=== PATIENT | female | born 1965 | race Caucasian/White ===

== ENCOUNTER 2024-04-09 10:00 | Outpatient (OUT) | payer BC, SELFPAY ==
--- NOTE | 2024-04-09 10:07 | ECG_ITS ---
[facility] Test Date: 2024-04-09 Pat Name: Lillian Sparks Department: Room: - Gender: Female [employer]: : 1965 Requested By: Order Number: [id number] Reading MD: SHAUNNA LOAIZA Measurements Intervals [place] Rate: 61 P: 58 NH: 164 QRS: 21 QRSD: 90 T: 25 QT: 400 QTc: 404 Interpretive Statements SINUS RHYTHM No previous ECG available for comparison Electronically Signed On 04-10-2024 13:18:17 EDT by SHAUNNA LOAIZA
[2024-04-09 11:40] LABS: Basophils Percent Auto 0.3 % (0.2-2.0); Eosinophils Absolute Auto 0.1 10^3/uL (0.0-0.7); Eosinophils Percent Auto 1.6 % (0.9-7.0); Hematocrit 36.5 % (36.0-48.0); Hemoglobin 12.2 g/dL (12.0-16.0); Immature Granulocytes Abs Auto 0.01 10^3/uL (0.00-0.03); Immature Granulocytes Pct Auto 0.3 % (0.0-0.5); Lymphocytes Absolute Auto 1.3 10^3/uL (1.2-3.8); Lymphocytes Percent Auto 34.1 % (20.5-60.0); Mean Corpuscular HGB Conc 33.4 g/dL (29.9-35.2); Mean Corpuscular Hemoglobin 31.2 pg (26.7-34.0); Mean Corpuscular Volume 93.4 fL (81.0-99.0); Mean Platelet Volume 9.4 fL (9.5-13.5); Monocytes Absolute Auto 0.2 10^3/uL (0.3-0.8); Monocytes Percent Auto 6.2 % (1.7-12.0); Neutrophils Absolute Auto 2.1 10^3/uL (1.4-6.5); Neutrophils Percent Auto 57.5 % (43.0-75.0); Platelet Count 231 10^3/uL (150-450); Red Blood Count 3.91 10^6/uL (4.20-5.40); Red Cell Distribution Width 12.1 % (11.0-15.0); White Blood Count 3.7 10^3/uL (4.0-11.0)
[2024-04-09 11:43] LABS: Anion Gap 8.8; BUN Creatinine Ratio 18.2; Calcium 9.4 mg/dL (8.5-10.1); Carbon Dioxide 34.1 mmol/L (21.0-32.0); Chloride 104 mmol/L (98-107); Estimated GFR (African America >60 (>=60); Estimated GFR (Non-African Ame >60 (>=60); Glucose 115 mg/dL (74-106); Potassium 3.9 mmol/L (3.5-5.1); Sodium 143 mmol/L (136-145)
== END 2024-04-09 10:01 | disposition home or self-care (01) ==
LOC: PST 10:01
PROVIDERS: PCP Family Medicine; Visit Provider Surgery
DX: Z01.810 Encounter for preprocedural cardiovascular examination (principal); Z01.812 Encounter for preprocedural laboratory examination; K82.8 Other specified diseases of gallbladder; I10 Essential (primary) hypertension; D64.9 Anemia, unspecified
CPT/HCPCS: 36415; 80048; 85025; 93005

== ENCOUNTER 2024-04-13 07:09 | Day surgery (SDC) | payer BC, SELFPAY ==
[2024-04-09 10:58] VITALS: BP 124/77; PULSE 63; TEMP 36.4; O2SAT 97; BMI 35.5
[2024-04-13] VITALS (18 sets, daily range): BP systolic 135–154; BP diastolic 70–85; PULSE 69–83; TEMP 36.1–36.2; O2SAT 95–97; BMI 34.9
[2024-04-13] MEDS: LACTATED RINGER'S SOLUTION 1,000 ML 50 ML IV (07:38)
[2024-04-13] MEDS: INDOCYANINE GREEN 25 MG VIAL 5 MG INJ (07:38)
[2024-04-13] MEDS: CLINDAMYCIN PHOSPHATE/D5W 600 MG/50 ML PIGGYBACK 100 MG IV (08:12)
--- NOTE | 2024-04-13 08:16 | P.ON_ITS ---
Date of procedure: 04/13/24 Pre-op diagnosis: symptomatic cholelithiasis Post-op diagnosis: other (chronic cholecystitis ) Procedure: Procedure: Robotic assisted laparoscopic cholecystectomy with TAP block The patient was brought to the operating room and placed supine on the operating room table. Cardiopulmonary monitoring was initiated. General anesthesia was induced without any complication. A time-out was performed. Pre-operative antibiotics were given. EPC cuffs were on the lower extremities. The abdomen was prepped and draped in the usual sterile fashion. The abdomen was entered approximately 12-14 cm distal to the xyophoid process and to the left of the midline. To do this a skin incision was made. A 5mm 0 degree laparoscope was then introduced using an optical access trocar. Pneumoperitoneum was then established through this trocar. Once pneumoperitoneum was created 2 additional 8 mm Da Judith ports were placed under direct visualization in the mid left and left lateral abdomen along the same line just superior to the umbilicus. A 4th 8mm RUQ port was placed then as well under direct visualization. The 5mm optiview port was then upsized to a 12mm robotic port under direct visualization. Prior to proceeding with the operation, an intraoperative transversus abdominis plane TAP block was performed. ?Under visualization with the laparoscope, a needle was inserted percutaneously and, confirming that I was in the right plane, 30 mL of a mixture of Ropivacaine and Decadron were injected on both sides for a total of 60 ml. ?Good separation of the muscle planes was seen bilaterally indicating good placement of the anesthetic solution. The da Judith machine was then docked and a camera placed without complication. A monopolar hook was then placed in the right arm and a fenestrated bipolar grasper was placed in the left arm.? Filmy adhesions between the gallbladder and the omentum were lysed carefully with electrocautery.? The fundus of the gall bladder was grasped and directed towards the patient's right shoulder.? The infundibulum of the gallbladder was grasped with a bipolar grasper.? The gallbladder was positioned so that the cystic duct was at a right angle to the common bile duct in order to expose Calot's triangle. The peritoneum between the gallbladder and the liver was taken down by electrocautery to further mobilize the triangle.? The fibrous tissue was hooked with meticulous electrocautery.? Hook electrocautery was used to identify the cystic duct. The cystic duct was skeletonized with electrocautery.? Dissection was continued to locate the cystic artery.? The cystic artery was skeletonized with electrocautery. Critical view was obtained in the anterior and posterior window.? All fat and fibrous tissue was dissected from the cystohepatic triangle with careful hook electrocautery. The cystic plate of the liver was skeletonized with hook electrocautery.? Both the cystic duct and cystic artery were the only structures visualized entering into the gallbladder. Firefly was used to confirm identification of the cystic duct.? The critical view of safety was confirmed. The cystic duct was ligated with double Hemoclips, and then divided with Endoshears. The cystic artery was ligated with a Hemoclip and divided with Endoshears. The gallbladder was dissected from the liver bed with electrocautery.? The gallbladder was then placed into the Endopouch and delivered from the body at the umbilicus incision.? The bed was then inspected.? Hemostasis was achieved with electrocautery. The cystic duct and artery stumps were identified. All clips remained on both the cystic artery and the cystic duct stump.? No sign of bile leak or bleeding from the duct or artery stump. The da Judith was undocked from the patient.?The camera and the left umbilical port were removed from the abdomen. The umbilical fascia was closed with an 0 Vicryl suture with a needle nose suture passer and a Chucky-Julius device under direct visualization.? Working ports were removed.? All incisions were closed with simple subcuticular 4-0 Monocryl sutures.? Incisions were cleaned and dressed with Dermabond. All sponge, needle and instrument counts were correct prior to closure and the patient tolerated the procedure well without any apparent complication. The patient was extubated and then taken to recovery in stable Anesthesia: LINO Surgeon: Frank Tracey Estimated blood loss (mL): 5 Pathology: other (gallbladder and contents ) Condition: stable Disposition: PACU
[2024-04-13] MEDS: BUPIVACAINE HCL 0.25% PF 25 MG/10 ML VIAL INJ (09:00)
[2024-04-13] MEDS: BUPIVACAINE LIPOSOME/PF 266 MG/13.3 ML VIAL INJ (09:00)
[2024-04-13] MEDS: 0.9 % SODIUM CHLORIDE 10 ML VIAL IV (09:00)
[2024-04-13] MEDS: LACTATED RINGER'S SOLUTION 1,000 ML 75 ML IV (09:01)
[2024-04-13] MEDS: HYDROMORPHONE HCL 0.5 MG/0.5 ML SYRINGE IV ×4 (10:13→10:46)
[2024-04-13] MEDS: OXYCODONE HCL/ACETAMINOPHEN 5MG/325MG 1 TAB PO (10:37)
[2024-04-13] MEDS: FAMOTIDINE/PF 20 MG/2 ML VIAL IV (10:40)
== END 2024-04-13 12:25 | disposition home or self-care (01) ==
PROVIDERS: PCP Family Medicine; Visit Provider Surgery
PROC: (CPT 790; principal; 2024-04-13 08:00)
DX: K80.10 Calculus of gallbladder with chronic cholecystitis without obstruction (principal); Z87.891 Personal history of nicotine dependence; K82.8 Other specified diseases of gallbladder; I10 Essential (primary) hypertension; E06.3 Autoimmune thyroiditis; M06.9 Rheumatoid arthritis, unspecified
CPT/HCPCS: 47562; 36415; 88304; J0665; J1100; J1170; J1885; J2250; J2405; J2704; J2710; J3010